=== PATIENT | male | born 1945 | race African-American/Black ===

== ENCOUNTER 2016-08-19 15:47 | Emergency (ER) | payer MEDICARE ==
--- NOTE | 2016-08-19 17:23 | ER Document Report ---
ED General - General Chief Complaint: Chest Congestion Stated Complaint: CONGESTION Mode of Arrival: Ambulatory Information source: Patient Notes: 70-year-old male presents with complaints of productive green brown sputum cough over the past 3 weeks. Patient notes initially was green, was seen by his primary care physician started on amoxicillin. Patient denies any fevers or chills nausea vomiting or diarrhea, patient notes no significant shortness of breath. Patient notes he has pneumonia a few times a year. TRAVEL OUTSIDE OF THE [place] IN LAST 30 DAYS: No - HPI Onset: Other - 3 week duration Onset/Duration: Persistent, Waxing and waning - Improve slightly with amoxicillin but then worsened Quality of pain: No pain Severity: Mild Pain Level: Denies Associated symptoms: Productive cough, Rhinnorhea Exacerbated by: Denies Relieved by: Denies Similar symptoms previously: No Recently seen / treated by doctor: No - Related Data Allergies/Adverse Reactions: No Known Allergies Allergy (Verified 08/19/16 15:59) Past Medical History - Social History Smoking Status: Never Smoker Cigarette use (# per day): No Chew tobacco use (# tins/day): No Smoking Education Provided: No Family History: Hypertension Patient has suicidal ideation: No Patient has homicidal ideation: No - Past Medical History Cardiac Medical History: Reports: Hx Hypercholesterolemia, Hx Hypertension Denies: Hx Coronary Artery Disease, Hx Heart Attack Pulmonary Medical History: Reports: Hx Asthma Denies: Hx Bronchitis, Hx COPD, Hx Pneumonia Neurological Medical History: Denies: Hx Cerebrovascular Accident, Hx Seizures Endocrine Medical History: Reports: Hx Diabetes Mellitus Type 2 Renal/ Medical History: Reports: Hx Kidney Stones. Denies: Hx Peritoneal Dialysis GI Medical History: Reports: Hx Gastroesophageal Reflux Disease, Hx Hepatitis - HEP C. Denies: Hx Cirrhosis, Hx Hiatal Hernia, Hx Ulcer Musculoskeltal Medical History: Reports Hx Arthritis Psychiatric Medical History: Denies: Hx Depression Infectious Medical History: Reports: Hx Hepatitis - HEP C Past Surgical History: Denies: Hx Abdominal Surgery, Hx Open Heart Surgery, Hx Pacemaker - Immunizations Hx Diphtheria, Pertussis, Tetanus Vaccination: Yes Hx Pneumococcal Vaccination: 04/27/00 Review of Systems - Review of Systems Notes: REVIEW OF SYSTEMS: CONSTITUTIONAL : Denies fever, chills, or sweats. Denies recent illness. EENT: Denies eye, ear, throat, or mouth pain or symptoms. Denies nasal or sinus congestion or discharge. Denies throat, tongue, or mouth swelling or difficulty swallowing. CARDIOVASCULAR: Denies chest pain. Denies palpitations or racing or irregular heart beat. Denies ankle edema. RESPIRATORY: Admits to productive cough chest congestion GASTROINTESTINAL: Denies abdominal pain or distention. Denies nausea, vomiting , or diarrhea. Denies blood in vomitus, stools, or per rectum. Denies black, tarry stools. Denies constipation. GENITOURINARY: Denies difficulty urinating, painful urination, burning, frequency, blood in urine, or discharge. MUSCULOSKELETAL: Denies back or neck pain or stiffness. Denies joint pain or swelling. SKIN: Denies rash, lesions or sores. HEMATOLOGIC : Denies easy bruising or bleeding. LYMPHATIC: Denies swollen, enlarged glands. NEUROLOGICAL: Denies confusion or altered mental status. Denies passing out or loss of consciousness. Denies dizziness or lightheadedness. Denies headache. Denies weakness or paralysis or loss of use of either side. Denies problems with gait or speech. Denies sensory loss, numbness, or tingling. Denies seizures. PSYCHIATRIC: Denies anxiety or stress. Denies depression, suicidal ideation, or homicidal ideation. ALL OTHER SYSTEMS REVIEWED AND NEGATIVE. Dictation was performed using BackTrack voice recognition software PHYSICAL EXAMINATION: GENERAL: Well-appearing, well-nourished and in no acute distress. HEAD: Atraumatic, normocephalic. EYES: Pupils equal round and reactive to light, extraocular movements intact, sclera anicteric, conjunctiva are normal. ENT: Nares patent, oropharynx clear without exudates. Moist mucous membranes. NECK: Normal range of motion, supple without lymphadenopathy LUNGS: Breath sounds clear to auscultation bilaterally and equal. No wheezes rales or rhonchi. HEART: Regular rate and rhythm without murmurs ABDOMEN: Soft, nontender, nondistended abdomen. No guarding, no rebound. No masses appreciated. Musculoskeletal: Normal range of motion, no pitting or edema. No cyanosis. NEUROLOGICAL: Cranial nerves grossly intact. Normal speech, normal gait. Normal sensory, motor exams PSYCH: Normal mood, normal affect. SKIN: Warm, Dry, normal turgor, no rashes or lesions noted. Physical Exam - Vital signs Vitals: Temp Pulse Resp BP Pulse Ox 98.5 F 89 16 160/90 H 98 08/19/16 16:02 08/19/16 16:02 08/19/16 16:02 08/19/16 16:02 08/19/16 16:02 Course - Re-evaluation Re-evalutation: 08/19/16 17:23 Lab work imaging pending patient looks extremely well for his age 0408/19/16 18:00 X-ray is consistent with a left lower lobe pneumonia, patient will be started on levofloxacin otherwise he looks extremely well, he is satting 98% on room air is afebrile is not tachycardic. After performing a Medical Screening Examination, I estimate there is LOW risk for ACUTE CORONARY SYNDROME, RESPIRATORY FAILURE, SEPSIS OR MENINGITIS, thus I consider the discharge disposition reasonable. I have reevaluated this patient multiple times and no significant life threatening changes are noted. The patient and I have discussed the diagnosis and risks, and we agree with discharging home with close follow-up. We also discussed returning to the Emergency Department immediately if new or worsening symptoms occur. We have discussed the symptoms which are most concerning (e.g., changing or worsening pain, trouble swallowing or breathing, neck stiffness, fever) that necessitate immediate return. - Vital Signs Vital signs: Temp Pulse Resp BP Pulse Ox 98.7 F 66 16 162/72 H 98 08/19/16 17:59 08/19/16 17:59 08/19/16 17:59 08/19/16 17:59 08/19/16 17:59 - Laboratory Result Diagrams: 08/19/16 17:24 08/19/16 17:24 Laboratory results interpreted by me: 08/19/16 08/19/16 17:24 17:24 RDW 14.6 H Glucose 183 H - Diagnostic Test Radiology reviewed: Image reviewed, Reports reviewed - Left lower lobe pneumonia Discharge - Discharge Clinical Impression: Body aches Left lower lobe pneumonia Qualifiers: Pneumonia type: due to unspecified organism Qualified Code(s): J18.1 - Lobar pneumonia, unspecified organism Condition: Stable Disposition: HOME, SELF-CARE Additional Instructions: Pneumonia Your examination indicates that you have pneumonia. This is an infection of the lung tissue, usually caused by bacteria or a virus. Symptoms include cough, fever, shaking chills, chest pain, shortness of breath, and coughing up bloody sputum. Treatment for bacterial pneumonia includes rest, antibiotics for 10 to 14 days, increasing your clear liquid intake, a cool mist humidifier at your bedside, and fever medication. Often, a repeat chest X-ray is performed in a few weeks--even if you feel better--to ascertain whether the infection has completely resolved and no underlying lung problem is present. You should call the physician if you develop persistent vomiting, high fever that does not respond to fever medication, increasing shortness of breath , confusion, or lethargy. Also, failure to improve within two to three days is an indication for re-examination. Follow up with your physician tomorrow for further care or return to the ED IMMEDIATELY if symptoms worsen or new concerns occur. If you cannot afford to follow up with your primary care physician a list of low cost clinics have been provided at the end of your discharge papers as well. Prescriptions: Levofloxacin [Levaquin 750 mg Tablet] 750 mg PO DAILY #5 tablet Forms: Return to Work
[2016-08-19 17:33] LABS: ABSOLUTE EOSINOPHILS # (AUTO) 0.2 10^3/uL (0.0-0.6); ABSOLUTE LYMPHOCYTES (AUTO) 1.9 10^3/uL (0.5-4.7); ABSOLUTE MONOCYTES (AUTO) 0.3 10^3/uL (0.1-1.4); ABSOLUTE NEUT (AUTO) 4.3 10^3/uL (1.7-8.2); BASOPHILS % (AUTO) 0.7 % (0-2); EOSINOPHILS % (AUTO) 2.3 % (0-6); HEMATOCRIT 41.4 % (37.9-51.0); HEMOGLOBIN 14.3 g/dL (13.5-17.0); HGB HCT DIFFERENCE 1.5; LYMPHOCYTES % (AUTO) 28.5 % (13-45); MEAN CORPUSCULAR HEMOGLOBIN 31.5 pg (27.0-33.4); MEAN CORPUSCULAR HGB CONC 34.6 g/dL (32.0-36.0); MEAN CORPUSCULAR VOLUME 91 fl (80-97); RED BLOOD COUNT 4.55 10^6/uL (4.35-5.55); RED CELL DISTRIBUTION WIDTH 14.6 % (11.5-14.0); SEGMENTED NEUTROPHILS % (AUTO) 63.5 % (42-78); WHITE BLOOD COUNT 6.8 10^3/uL (4.0-10.5)
[2016-08-19 17:58] LABS: ALANINE AMINOTRANSFERASE 24 U/L (21-72); ALBUMIN 3.9 g/dL (3.5-5.0); ALKALINE PHOSPHATASE 89 U/L (38-126); ANION GAP 12 (5-19); ASPARTATE AMINO TRANSFERASE 22 U/L (17-59); BILIRUBIN,DIRECT 0.1 mg/dL (0.0-0.4); BILIRUBIN,TOTAL 0.3 mg/dL (0.2-1.3); BLOOD UREA NITROGEN 12 mg/dL (7-20); CALCIUM 9.5 mg/dL (8.4-10.2); CARBON DIOXIDE 28 mmol/L (22-30); CHLORIDE 104 mmol/L (98-107); CREATININE RESULT 1.01 mg/dL (0.52-1.25); GLUCOSE 183 mg/dL (75-110); SODIUM 143.5 mmol/L (137-145); TOTAL PROTEIN 7.7 g/dL (6.3-8.2)
[2016-08-19 18:00] VITALS: BP 162/72
== END 2016-08-19 18:00 | disposition home or self-care (01) ==
LOC: ER 15:47
DX: J18.1 Lobar pneumonia, unspecified organism (principal); R05 Cough; J34.89 Other specified disorders of nose and nasal sinuses; R52 Pain, unspecified; I10 Essential (primary) hypertension; E11.9 Type 2 diabetes mellitus without complications; J45.909 Unspecified asthma, uncomplicated
CPT/HCPCS: 36415; 71020; 80053; 85025; 99283

== ENCOUNTER 2016-08-25 00:07 | Emergency (ER) | payer MEDICARE ==
--- NOTE | 2016-08-25 06:30 | ER Document Report ---
ED General - General Mode of Arrival: Ambulatory Information source: Patient TRAVEL OUTSIDE OF THE [place] IN LAST 30 DAYS: No - HPI Patient complains to provider of: Productive Cough Onset: Other - > 3 weeks ago Onset/Duration: Gradual, Persistent Associated symptoms: Productive cough - Brown sputum, Shortness of breath Recently seen / treated by doctor: Yes - 08/19/2016 [facility] <CARMEL KNAPP - Last Filed: 08/25/16 06:40> <THIERRY IBARRA - Last Filed: 08/25/16 08:21> - General Chief Complaint: Productive Cough Stated Complaint: POSSIBLE PNEUMONIA RECHECK Notes: Patient is a 70-year-old male, with history including asthma, COPD, hypertension , and diabetes, presenting to the emergency department after productive cough over 3 weeks. Patient was first put on a round of amoxicillin, and on 2016 he came into the emergency department and was prescribed 5 day course of Levaquin for likely pneumonia based on lingular infiltrate in his left lower lobe. Patient states he still has not improved, and his sputum has turned from green to brown. Patient denies fever. (CARMEL KNAPP) - Related Data Allergies/Adverse Reactions: No Known Allergies Allergy (Verified 08/25/16 00:48) Past Medical History - General Information source: Patient - Social History Smoking Status: Unknown if Ever Smoked Family History: Reviewed & Not Pertinent, Hypertension - Past Medical History Cardiac Medical History: Reports: Hx Hypercholesterolemia, Hx Hypertension Pulmonary Medical History: Reports: Hx Asthma, Hx COPD Endocrine Medical History: Reports: Hx Diabetes Mellitus Type 2 Renal/ Medical History: Reports: Hx Kidney Stones GI Medical History: Reports: Hx Gastroesophageal Reflux Disease, Hx Hepatitis - HEP C Musculoskeltal Medical History: Reports Hx Arthritis Infectious Medical History: Reports: Hx Hepatitis - HEP C - Immunizations Hx Diphtheria, Pertussis, Tetanus Vaccination: Yes Hx Pneumococcal Vaccination: 04/27/00 <CARMEL KNAPP - Last Filed: 08/25/16 06:40> Review of Systems - Review of Systems Constitutional: No symptoms reported. denies: Fever EENT: No symptoms reported Cardiovascular: No symptoms reported Respiratory: See HPI, Cough, Short of breath, Sputum - Brown, Other - Chest Congestion Gastrointestinal: No symptoms reported Genitourinary: No symptoms reported Male Genitourinary: No symptoms reported Musculoskeletal: No symptoms reported Skin: No symptoms reported Hematologic/Lymphatic: No symptoms reported Neurological/Psychological: No symptoms reported -: Yes All other systems reviewed and negative <ARIAALEXEICARMEL - Last Filed: 08/25/16 06:40> Physical Exam - General General appearance: Alert - HEENT Head: Normocephalic, Atraumatic Eyes: Normal Pupils: PERRL - Respiratory Respiratory status: No respiratory distress Chest status: Nontender Breath sounds: Rhonchi, Wheezing - Higher pitch in the left lower lung over area of lingular infiltrate - Cardiovascular Rhythm: Regular Heart sounds: Normal auscultation Murmur: No - Abdominal Inspection: Normal Distension: No distension Bowel sounds: Normal Tenderness: Nontender - Back Back: Normal, Nontender - Extremities General upper extremity: Normal inspection, Nontender General lower extremity: Normal inspection, Nontender - Neurological Neuro grossly intact: Yes Cognition: Normal Orientation: AAOx4 Candido Coma Scale Eye Opening: Spontaneous [place] Coma Scale Verbal: Oriented Candido Coma Scale Motor: Obeys Commands Candido Coma Scale Total: 15 Speech: Normal - Psychological Associated symptoms: Normal affect, Normal mood - Skin Skin Temperature: Warm Skin Moisture: Dry Skin Color: Normal <CARMEL KNAPP - Last Filed: 08/25/16 06:40> Course <CARMEL KNAPP - Last Filed: 08/25/16 06:40> - Laboratory Result Diagrams: 08/25/16 07:05 <THIERRY IBARRA - Last Filed: 08/25/16 08:21> - Re-evaluation Re-evalutation: 08/25/16 08:21 After the DuoNeb treatment, the lungs have cleared quite a lot. And there is now mostly a focal wheeze and rhonchi heard in the left posterior lower lung consistent with the lingular infiltrate on x-ray. (THIERRY IBARRA) - Vital Signs Vital signs: Temp Pulse Resp BP Pulse Ox 97.8 F 63 18 130/70 H 94 08/25/16 07:42 08/25/16 07:42 08/25/16 07:42 08/25/16 07:42 08/25/16 07:42 - Laboratory Laboratory results interpreted by me: 08/25/16 07:05 RDW 14.6 H Discharge <CARMEL KNAPP - Last Filed: 08/25/16 06:40> <THIERRY IBARRA - Last Filed: 08/25/16 08:21> - Discharge Clinical Impression: COPD exacerbation Pneumonia Qualifiers: Pneumonia type: due to unspecified organism Laterality: left Lung location: unspecified part of lung Qualified Code(s): J18.9 - Pneumonia, unspecified organism Condition: Stable Disposition: HOME, SELF-CARE Additional Instructions: Take the antibiotics as prescribed. Try Robitussin-DM to help control cough and to loosen mucus. Drink plenty of fluids. Use your albuterol inhaler every 4 hours for wheezing as needed. Get as much rest as possible. Follow-up with your primary care provider this week for recheck, and to check on the sputum cultures. Follow-up with your pulmonary medicine doctor as scheduled. RETURN TO THE EMERGENCY ROOM IF ANY NEW OR WORSENING SYMPTOMS. Prescriptions: Doxycycline Hyclate 100 mg PO BID #20 tablet Referrals: TR ESCOBAR MD [Primary Care Provider] - Follow up in 3-5 days Scribe Attestation: 08/25/16 08:20 I personally performed the services described in the documentation, reviewed and edited the documentation which was dictated to the scribe in my presence, and it accurately records my words and actions. (THIERRY IBARRA) Scribe Documentation - Scribe Written by Catherine:: Carmel Knapp 08/25/2016 0630 acting as scribe for :: Ji <CARMEL KNAPP - Last Filed: 08/25/16 06:40>
[2016-08-25] MEDS ORDERED: IPRATROPIUM/ALBUTEROL 0.5-2.5 MG/3 ML AMPUL NEB ONE (06:40)
[2016-08-25 07:34] LABS: ABSOLUTE BASOPHILS # (AUTO) 0.1 10^3/uL (0.0-0.2); ABSOLUTE EOSINOPHILS # (AUTO) 0.2 10^3/uL (0.0-0.6); ABSOLUTE LYMPHOCYTES (AUTO) 2.6 10^3/uL (0.5-4.7); ABSOLUTE MONOCYTES (AUTO) 0.4 10^3/uL (0.1-1.4); ABSOLUTE NEUT (AUTO) 3.1 10^3/uL (1.7-8.2); BASOPHILS % (AUTO) 1.2 % (0-2); EOSINOPHILS % (AUTO) 2.7 % (0-6); HEMATOCRIT 43.9 % (37.9-51.0); HEMOGLOBIN 14.9 g/dL (13.5-17.0); HGB HCT DIFFERENCE 0.8; MEAN CORPUSCULAR HEMOGLOBIN 30.7 pg (27.0-33.4); MEAN CORPUSCULAR HGB CONC 33.8 g/dL (32.0-36.0); MEAN CORPUSCULAR VOLUME 91 fl (80-97); RED BLOOD COUNT 4.84 10^6/uL (4.35-5.55); RED CELL DISTRIBUTION WIDTH 14.6 % (11.5-14.0); SEGMENTED NEUTROPHILS % (AUTO) 48.1 % (42-78); WHITE BLOOD COUNT 6.4 10^3/uL (4.0-10.5)
[2016-08-25 08:50] VITALS: BP 131/77
== END 2016-08-25 08:50 | disposition home or self-care (01) ==
LOC: ER 00:07
DX: J44.0 Chronic obstructive pulmonary disease with (acute) lower respiratory infection (principal); J18.9 Pneumonia, unspecified organism; J44.1 Chronic obstructive pulmonary disease with (acute) exacerbation; I10 Essential (primary) hypertension; E11.9 Type 2 diabetes mellitus without complications; R05 Cough; R06.02 Shortness of breath
CPT/HCPCS: 94640; 99283; 36415; 87070; 87205; 85025; 71020; A9270; J7620

== ENCOUNTER 2016-09-06 01:58 | Emergency (ER) | payer MEDICARE ==
[2016-09-06 02:13] VITALS: BP 148/76
--- NOTE | 2016-09-06 02:49 | ER Document Report ---
ED Respiratory Problem - General Chief Complaint: Congestion Stated Complaint: BODY ACHES,CONGESTION Time Seen by Provider: 09/06/16 02:25 Notes: Patient is a 70-year-old male comes emergency department for chief complaint of chest congestion, cough, and feeling run down. He denies chest pain, dizziness. He states he is coughing up brown and greenish sputum. He was diagnosed with pneumonia originally almost a month ago, states he took Levaquin , states he was seen again and placed on doxycycline, he states he has completed both courses but feels about the same. Past medical history of COPD, asthma, DMII. Former smoker. TRAVEL OUTSIDE OF THE [place] IN LAST 30 DAYS: No - Related Data Allergies/Adverse Reactions: No Known Allergies Allergy (Verified 08/25/16 00:48) Past Medical History - General Information source: Patient - Social History Smoking Status: Former Smoker Frequency of alcohol use: None Drug Abuse: None Lives with: Alone Family History: Reviewed & Not Pertinent, Hypertension Patient has suicidal ideation: No Patient has homicidal ideation: No - Past Medical History Cardiac Medical History: Reports: Hx Hypercholesterolemia, Hx Hypertension Denies: Hx Coronary Artery Disease, Hx Heart Attack Pulmonary Medical History: Reports: Hx Asthma, Hx COPD Denies: Hx Bronchitis, Hx Pneumonia Neurological Medical History: Denies: Hx Cerebrovascular Accident, Hx Seizures Endocrine Medical History: Reports: Hx Diabetes Mellitus Type 2 Renal/ Medical History: Reports: Hx Kidney Stones. Denies: Hx Peritoneal Dialysis GI Medical History: Reports: Hx Gastroesophageal Reflux Disease, Hx Hepatitis - HEP C. Denies: Hx Cirrhosis, Hx Hiatal Hernia, Hx Ulcer Musculoskeltal Medical History: Reports Hx Arthritis Psychiatric Medical History: Denies: Hx Depression Infectious Medical History: Reports: Hx Hepatitis - HEP C Past Surgical History: Denies: Hx Abdominal Surgery, Hx Open Heart Surgery, Hx Pacemaker - Immunizations Hx Diphtheria, Pertussis, Tetanus Vaccination: Yes Hx Pneumococcal Vaccination: 04/27/00 Review of Systems - Review of Systems Constitutional: See HPI EENT: No symptoms reported Cardiovascular: No symptoms reported Respiratory: See HPI Gastrointestinal: No symptoms reported Genitourinary: No symptoms reported Male Genitourinary: No symptoms reported Musculoskeletal: No symptoms reported Skin: No symptoms reported Hematologic/Lymphatic: No symptoms reported Neurological/Psychological: No symptoms reported Physical Exam - Vital signs Vitals: Temp Pulse Resp BP Pulse Ox 98.2 F 69 16 148/76 H 98 09/06/16 02:03 09/06/16 02:03 09/06/16 02:03 09/06/16 02:03 09/06/16 02:03 Interpretation: Normal - General General appearance: Appears well, Alert In distress: None - Patient alert, well-appearing, calm - HEENT Head: Normocephalic, Atraumatic Eyes: Normal Conjunctiva: Normal Extraocular movements intact: Yes Eyelashes: Normal Pupils: PERRL Nasal: Normal Mouth/Lips: Normal Mucous membranes: Normal Pharynx: Normal Neck: Normal - Respiratory Respiratory status: No respiratory distress. No: Labored, Tachypnea Chest status: Nontender Breath sounds: Normal. No: Decreased air movement, Nonproductive cough, Wheezing Chest palpation: Normal - Cardiovascular Rhythm: Regular. No: Tachycardia Heart sounds: Normal auscultation, S1 appreciated, S2 appreciated Murmur: No - Abdominal Inspection: Normal Distension: No distension Bowel sounds: Normal Tenderness: Nontender. No: Tender Organomegaly: No organomegaly - Back Back: Normal, Nontender - Extremities General upper extremity: Normal inspection, Nontender, Normal color, Normal ROM , Normal temperature General lower extremity: Normal inspection, Nontender, Normal color, Normal ROM , Normal temperature, Normal weight bearing. No: Lois's sign - Neurological Neuro grossly intact: Yes Cognition: Normal Orientation: AAOx4 Candido Coma Scale Eye Opening: Spontaneous [place] Coma Scale Verbal: Oriented [place] Coma Scale Motor: Obeys Commands Candido Coma Scale Total: 15 Speech: Normal Motor strength normal: LUE, RUE, LLE, RLE Sensory: Normal - Psychological Associated symptoms: Normal affect, Normal mood - Skin Skin Temperature: Warm Skin Moisture: Dry Skin Color: Normal Course - Re-evaluation Re-evalutation: Patient with clear lung sounds, nonlabored breathing, no hypoxia, he gets up and ambulates without any difficulty or tachypnea, is actually quite well- appearing. Vital signs unremarkable. CBC unremarkable, chemistry hemolyzed, EKG with no changes compared to prior. Chest x-ray shows resolution of previous pneumonia. No acute abnormalities noted. Discussed this with patient, patient expresses satisfaction resolution, he expresses frustration that he gets about 5 or so upper respiratory infections a year, he was formerly a chronic smoker for about 50 years, he states he does have a follow-up appointment with pulmonology. After discussion patient states he is happy with the results, ready to leave, requests for pain for lower back strain. Patient states he does not want to stay for blood redraw. Clinical picture not consistent with ACS. Unremarkable back and neurological exam. Provided with a Dosepak for this. - Vital Signs Vital signs: Temp Pulse Resp BP Pulse Ox 98.2 F 69 19 148/76 H 99 09/06/16 03:42 09/06/16 03:42 09/06/16 04:50 09/06/16 03:42 09/06/16 04:50 - Laboratory Result Diagrams: 09/06/16 04:01 09/06/16 04:01 Laboratory results interpreted by me: 09/06/16 04:01 RDW 15.1 H Plt Count 143 L Discharge - Discharge Clinical Impression: Chest congestion, Cough Condition: Stable Disposition: HOME, SELF-CARE Additional Instructions: The chest x-ray shows that the pneumonia has cleared. Blood work does not show any antibiotics. Continue Mucinex, drink plenty of fluids, rest. Follow-up with pulmonology referral for additional management of COPD. Return to emergency department for any concerning or worsening symptoms including difficulty breathing. Referrals: TR ESCOBAR MD [Primary Care Provider] - Follow up as needed
[2016-09-06 04:11] LABS: ABSOLUTE EOSINOPHILS # (AUTO) 0.2 10^3/uL (0.0-0.6); ABSOLUTE LYMPHOCYTES (AUTO) 1.9 10^3/uL (0.5-4.7); ABSOLUTE MONOCYTES (AUTO) 0.5 10^3/uL (0.1-1.4); ABSOLUTE NEUT (AUTO) 2.3 10^3/uL (1.7-8.2); BASOPHILS % (AUTO) 0.7 % (0-2); EOSINOPHILS % (AUTO) 3.9 % (0-6); HEMATOCRIT 41.3 % (37.9-51.0); HGB HCT DIFFERENCE 0.7; LYMPHOCYTES % (AUTO) 38.6 % (13-45); MEAN CORPUSCULAR HEMOGLOBIN 30.8 pg (27.0-33.4); MEAN CORPUSCULAR VOLUME 91 fl (80-97); MONOCYTES % (AUTO) 10.1 % (3-13); RED BLOOD COUNT 4.56 10^6/uL (4.35-5.55); RED CELL DISTRIBUTION WIDTH 15.1 % (11.5-14.0); SEGMENTED NEUTROPHILS % (AUTO) 46.7 % (42-78)
[2016-09-06] MEDS ORDERED: HYDROCODONE/ACETAMINOPHEN 5-325 MG 6 TAB/DSPK PO PRN (04:37)
[2016-09-06] MEDS ORDERED: HYDROCODONE/ACETAMINOPHEN 5-325 MG 6 TAB/DSPK ONE (05:03)
--- NOTE | 2016-09-06 12:57 | EKG REPORT ---
SEVERITY:- ABNORMAL ECG - SINUS ARRHYTHMIA, RATE 52-73 LEFT VENTRICULAR HYPERTROPHY : Confirmed by: Nader Wheat 06-Sep-2016 12:56:23
--- NOTE | 2016-09-08 09:31 | EKG REPORT ---
SEVERITY:- ABNORMAL ECG - SINUS RHYTHM LEFT VENTRICULAR HYPERTROPHY : Confirmed on behalf of: Nader Wheat 08-Sep-2016 09:30:10
== END 2016-09-06 04:51 | disposition home or self-care (01) ==
LOC: ER 01:58
DX: J44.9 Chronic obstructive pulmonary disease, unspecified (principal); S39.012A Strain of muscle, fascia and tendon of lower back, initial encounter; X58.XXXA Exposure to other specified factors, initial encounter; R05 Cough; R09.89 Other specified symptoms and signs involving the circulatory and respiratory systems; E11.9 Type 2 diabetes mellitus without complications; Z87.891 Personal history of nicotine dependence; Z87.01 Personal history of pneumonia (recurrent); I10 Essential (primary) hypertension
CPT/HCPCS: 36415; 71020; 85025; 93005; 93010; 99284

== ENCOUNTER 2016-09-15 01:49 | Emergency (ER) | payer MEDICARE ==
[2016-09-15] MEDS ORDERED: MINERAL OIL 30 ML UDCUP PR ONE ×2 (04:50→06:37)
--- NOTE | 2016-09-15 05:14 | ER Document Report ---
ED General - General Chief Complaint: Abdominal Pain Stated Complaint: POSSIBLE CONSTIPATION Time Seen by Provider: 09/15/16 04:49 Notes: Patient is a 71-year-old male who presents with complaint of not having a bowel movement for over 9 days. He has had some vomiting. He says the only bowel movement he has had is more liquid stool that he feels as, being pushed around something. He feels some pain in his lower back and his lower abdomen and feels as if there is a stool mass that is not allowing things to pass. He has had issues with constipation in the past. He denies any fevers. No infections. No abdominal surgeries. No other complaints at this time. TRAVEL OUTSIDE OF THE [place] IN LAST 30 DAYS: No - Related Data Allergies/Adverse Reactions: No Known Allergies Allergy (Verified 09/15/16 02:14) Past Medical History - Social History Smoking Status: Unknown if Ever Smoked Frequency of alcohol use: None Drug Abuse: None Family History: Reviewed & Not Pertinent, Hypertension Patient has suicidal ideation: No Patient has homicidal ideation: No - Past Medical History Cardiac Medical History: Reports: Hx Hypercholesterolemia, Hx Hypertension Denies: Hx Coronary Artery Disease, Hx Heart Attack Pulmonary Medical History: Reports: Hx Asthma, Hx COPD Denies: Hx Bronchitis, Hx Pneumonia Neurological Medical History: Denies: Hx Cerebrovascular Accident, Hx Seizures Endocrine Medical History: Reports: Hx Diabetes Mellitus Type 2 Renal/ Medical History: Reports: Hx Kidney Stones. Denies: Hx Peritoneal Dialysis GI Medical History: Reports: Hx Gastroesophageal Reflux Disease, Hx Hepatitis - HEP C. Denies: Hx Cirrhosis, Hx Hiatal Hernia, Hx Ulcer Musculoskeltal Medical History: Reports Hx Arthritis Psychiatric Medical History: Denies: Hx Depression Infectious Medical History: Reports: Hx Hepatitis - HEP C Past Surgical History: Denies: Hx Abdominal Surgery, Hx Open Heart Surgery, Hx Pacemaker - Immunizations Hx Diphtheria, Pertussis, Tetanus Vaccination: Yes Hx Pneumococcal Vaccination: 04/27/00 Review of Systems - Review of Systems Notes: My Normal Review Basic REVIEW OF SYSTEMS: CONSTITUTIONAL : Denies fever, chills, or sweats. Denies recent illness. CARDIOVASCULAR: Denies chest pain. RESPIRATORY: Denies cough, cold, or chest congestion. Denies shortness of breath, difficulty breathing, or wheezing. GASTROINTESTINAL: Lower abdominal pain. Few episodes of vomiting. Complaints of constipation. GENITOURINARY: Denies difficulty urinating, painful urination, burning, frequency, or blood in urine. MUSCULOSKELETAL: Denies neck or back pain or joint pain or swelling. SKIN: Denies rash or skin lesions. NEUROLOGICAL: Denies altered mental status or loss of consciousness. Denies headache. Denies weakness or paralysis or loss of use of either side. Denies problems with gait or speech. Denies sensory or motor loss. ALL OTHER SYSTEMS REVIEWED AND NEGATIVE. Physical Exam - Vital signs Vitals: Temp Pulse Resp BP Pulse Ox 97.8 F 73 16 119/67 98 09/15/16 02:12 09/15/16 02:12 09/15/16 02:12 09/15/16 02:12 09/15/16 02:12 - Notes Notes: General Appearance: Well nourished, alert, cooperative, no acute distress, mild obvious discomfort. Well appearing. Vitals: reviewed, See vital signs table. Eyes: PERRL, EOMI, Conjuctiva clear Mouth: No decreasd moisture Lungs: No wheezing, No rales, No rhonci, No accessory muscle use, good air exchange bilaterally. Heart: Normal rate, Regular rythm, No murmur, no rub Abdomen: Normal BS, soft, No rigidity, no abdominal distention, mild lower abdominal tenderness to palpation, No guarding, no rebound, no abdominal masses , no organomegaly Rectal Exam: No stool in rectal vault. Extremities: strength 5/5 in all extremities, good pulses in all extremities, no swelling or tenderness in the extremities, no edema. Skin: warm, dry, appropriate color, no rash Neuro: speech clear, oriented x 3, normal affect, responds appropriately to questions. Course - Vital Signs Vital signs: Temp Pulse Resp BP Pulse Ox 97.8 F 73 16 119/67 98 09/15/16 02:12 09/15/16 02:12 09/15/16 02:12 09/15/16 02:12 09/15/16 02:12 - Transfer of Care Notes: 09/15/16 06:52 on x-ray patient does have moderate amount of stool in the proximal rectal vault. I cannot reach it on digital rectal exam. He has had no passing of blood. He is on chronic opiate medications which is probably leading to his constipation is probably the reason why he has not had a bowel movement in over a week. I gave him an enema which had little relief. I will give him a second enema. After that we will discharge him home on I informed him if he still not had a bowel movement after 24 hours he should return to ER so we can reevaluate him. I encouraged him return to ER immediately if he has worsening pain, fevers , or recurrent vomiting. Magnesium citrate. Patient agrees with plan and will be discharged home. Patient's abdominal exam is very benign. His abdomen is soft and nondistended. He does not clinically represent an obstruction in his abdominal x-ray does not correlate with obstruction either. Dictation of this chart was performed using voice recognition software; therefore, there may be some unintended grammatical errors. Discharge - Discharge Clinical Impression: Narcotic bowel syndrome Abdominal pain Qualifiers: Abdominal location: lower abdomen, unspecified Qualified Code(s): R10.30 - Lower abdominal pain, unspecified Condition: Good Disposition: HOME, SELF-CARE Additional Instructions: After you get home please start using the magnesium citrate. You should start having bowel movements within the next 12-24 hours. Please return to the ER iff after 24 hours you are still not having bowel movements or feel unwell. Return to the ER immediately if you have recurrent vomiting, fevers, or worsening abdominal pain. You can stop taking the magnesium citrate after you have passed a moderate amount of formed stool. Prescriptions: Magnesium Citrate [Citrate of Magnesia 296 ml Bottle] 50 ml PO BID #1 bottle Referrals: TR ESCOBAR MD [Primary Care Provider] - 09/17/16
[2016-09-15 07:51] VITALS: BP 130/69
== END 2016-09-15 07:51 | disposition home or self-care (01) ==
LOC: ER 01:49
DX: K63.89 Other specified diseases of intestine (principal); T40.2X5A Adverse effect of other opioids, initial encounter; Z79.891 Long term (current) use of opiate analgesic; K59.00 Constipation, unspecified; R11.10 Vomiting, unspecified; R10.30 Lower abdominal pain, unspecified; M54.5 Low back pain; I10 Essential (primary) hypertension; J44.9 Chronic obstructive pulmonary disease, unspecified; E11.9 Type 2 diabetes mellitus without complications
CPT/HCPCS: 99283; 74022; J3490

== ENCOUNTER → 2016-09-25 | Outpatient (CLI) | payer MEDICAID, MEDICARE ==
--- NOTE | 2016-09-25 15:45 | RADIOLOGY REPORT (SQ) ---
EXAM DESCRIPTION: CT CHEST WITHOUT COMPLETED DATE/TIME: 09/25/2016 1:50 pm REASON FOR STUDY: PULMONARY INFILTRATE R91.8 OTHER NONSPECIFIC ABNORMAL FINDING OF LUNG FIELD COMPARISON: CT angio chest 08/02/2015 CT chest 06/07/2015 TECHNIQUE: CT scan performed of the chest without intravenous contrast. Images reviewed with lung, soft tissue and bone windows. Reconstructed coronal and sagittal MPR images reviewed. All images st ored on PACS. All CT scanners at this facility use dose modulation, iterative reconstruction, and/or weight based d osing when appropriate to reduce radiation dose to as low as reasonably achievable (ALARA). [facility]: Dose Right [facility]: CareDose [facility]: Dose Right [facility]: Teradose 4D [facility]: [employer] RADIATION DOSE: 6.80 mGy. LIMITATIONS: No technical limitations. FINDINGS: LUNGS AND PLEURA: There is peripheral bulla or bleb formation around the right and left sabrina ng apices. This is similar compared to both prior CT exams. On axial image 33, an 8 mm subpleural round density is present in the right upper lobe. This could be a small pulmonary nodules or airspace filled with fluid. No pleural effusions. No pneumothorax. Airways are patent. HILAR AND MEDIASTINAL STRUCTURES: Esophagus is thick walled with an air-fluid level along its distal 3rd. There is gastroesophageal reflux. Nonspecific enlarged precarinal lymph node 1.6 x 1.2 cm in size, similar compared to both prior studi es. HEART AND VASCULAR STRUCTURES: No aneurysm. No pericardial effusion. Moderate coronary artery calci fication UPPER ABDOMEN: No significant findings. Limited exam. THYROID AND OTHER SOFT TISSUES: No masses. No adenopathy. BONES: Focal fat in the T8 vertebral body sagittal image 33 unchanged from prior studies HARDWARE: None in the chest. OTHER: No other significant findings. IMPRESSION: 8 mm subpleural nodule right lung apex new compared to the previous exams COMMENT: FLEISCHNER CRITERIA FOR FOLLOW-UP OF PULMONARY NODULES Incidentally detected new nodules in persons 35 or older. HIGH RISK: History of smoking or other known risk factors. 6-8mm single solid nodule: LOW RISK: CT 6-12 mo; then consider CT 18-24 mo. HIGH RISK: CT 6-12 mo; th en CT 18-24 mo. TECHNICAL DOCUMENTATION: JOB ID: [id number] Quality ID # [id number]: Final reports with documentation of one or more dose reduction techniques (e.g., Au tomated exposure control, adjustment of the mA and/or kV according to patient size, use of iterative reconstruction technique) 2010 [employer]- All Rights Reserved
== END ==
LOC: RAD 13:22
PROVIDERS: ATTEND Internal Medicine Critical Care Medicine
DX: R91.8 Other nonspecific abnormal finding of lung field (principal)
CPT/HCPCS: 71250

== ENCOUNTER 2016-11-18 12:41 | Emergency (ER) | payer MEDICARE ==
--- NOTE | 2016-11-18 13:08 | ER Document Report ---
ED Blood Pressure Problem - General Chief Complaint: High Blood Pressure Stated Complaint: BLOOD PRESSURE PROBLEMS Time Seen by Provider: 11/18/16 13:05 Information source: Patient Notes: Patient was sent from his primary care physician's office due to an elevated blood pressure. Patient states he did take his blood pressure medications this morning but previously he had missed several days and had not taken them. He states he has no symptoms and feels "fine". He denies any chest pain or shortness of breath. He denies any numbness tingling or dizziness. Patient's symptoms are none at this time. There is no known radiation of the symptoms. Nothing appears to make symptoms better or worse. TRAVEL OUTSIDE OF THE [place] IN LAST 30 DAYS: No - HPI Patient complains to provider of: High blood pressure Onset: Just prior to arrival Onset/Duration: Gradual Quality of pain: No pain Severity: None Pain Level: Denies Problem is: Chronic problem Pt currently taking medication for problem: Yes Associated symptoms: None - Related Data Allergies/Adverse Reactions: No Known Allergies Allergy (Verified 11/18/16 12:52) Past Medical History - General Information source: Patient - Social History Smoking Status: Former Smoker Drug Abuse: None Family History: Reviewed & Not Pertinent, Hypertension Patient has suicidal ideation: No Patient has homicidal ideation: No - Past Medical History Cardiac Medical History: Reports: Hx Hypercholesterolemia, Hx Hypertension Denies: Hx Coronary Artery Disease, Hx Heart Attack Pulmonary Medical History: Reports: Hx Asthma, Hx COPD Denies: Hx Bronchitis, Hx Pneumonia Neurological Medical History: Denies: Hx Cerebrovascular Accident, Hx Seizures Endocrine Medical History: Reports: Hx Diabetes Mellitus Type 2 Renal/ Medical History: Reports: Hx Kidney Stones. Denies: Hx Peritoneal Dialysis GI Medical History: Reports: Hx Gastroesophageal Reflux Disease, Hx Hepatitis - HEP C. Denies: Hx Cirrhosis, Hx Hiatal Hernia, Hx Ulcer Musculoskeltal Medical History: Reports Hx Arthritis Psychiatric Medical History: Denies: Hx Depression Infectious Medical History: Reports: Hx Hepatitis - HEP C Past Surgical History: Denies: Hx Abdominal Surgery, Hx Open Heart Surgery, Hx Pacemaker - Immunizations Hx Diphtheria, Pertussis, Tetanus Vaccination: Yes Hx Pneumococcal Vaccination: 04/27/00 Review of Systems - Review of Systems Cardiovascular: denies: Chest pain, Palpitations Respiratory: denies: Cough, Short of breath Gastrointestinal: denies: Abdominal pain, Vomiting Physical Exam - Vital signs Vitals: Temp Pulse Resp BP Pulse Ox 98.5 F 53 L 18 211/87 H 100 11/18/16 12:52 11/18/16 12:52 11/18/16 12:52 11/18/16 12:52 11/18/16 12:52 - General General appearance: Appears well, Alert - Respiratory Respiratory status: No respiratory distress Chest status: Nontender Breath sounds: Normal Chest palpation: Normal - Cardiovascular Rhythm: Regular Heart sounds: Normal auscultation Murmur: No - Neurological Neuro grossly intact: Yes Cognition: Normal Orientation: AAOx4 Elmer Coma Scale Eye Opening: Spontaneous Candido Coma Scale Verbal: Oriented Elmer Coma Scale Motor: Obeys Commands Elmer Coma Scale Total: 15 Speech: Normal Motor strength normal: LUE, RUE, LLE, RLE Sensory: Normal - Psychological Associated symptoms: Normal affect, Normal mood - Skin Skin Temperature: Warm Skin Moisture: Dry Skin Color: Normal Course - Re-evaluation Re-evalutation: 11/18/16 14:12 pt denies complaints at 210pm. His bp is now 160/72 - Vital Signs Vital signs: Temp Pulse Resp BP Pulse Ox 98.5 F 53 L 18 211/87 H 100 11/18/16 12:52 11/18/16 12:52 11/18/16 12:52 11/18/16 12:52 11/18/16 12:52 Discharge - Discharge Clinical Impression: Uncontrolled hypertension Condition: Stable Disposition: HOME, SELF-CARE Instructions: Angiotensin Converting Enzyme Inhibitor Medication ([facility]), Beta Blockers ([facility]), High Blood Pressure ([facility]), Hydrochlorothiazide ([facility]) Additional Instructions: follow up with your primary doctor as instructed
[2016-11-18 14:22] VITALS: BP 160/72
== END 2016-11-18 14:16 | disposition home or self-care (01) ==
LOC: ER 12:41
DX: I10 Essential (primary) hypertension (principal); Z87.891 Personal history of nicotine dependence
CPT/HCPCS: 99283

== ENCOUNTER → 2016-11-20 | Outpatient (CLI) | payer MEDICARE ==
--- NOTE | 2016-11-20 15:26 | RADIOLOGY REPORT (SQ) ---
EXAM DESCRIPTION: KNEE LEFT 4 VIEWS COMPLETED DATE/TIME: 11/20/2016 2:59 pm REASON FOR STUDY: PAIN IN LEFT KNEE M25.562 PAIN IN LEFT KNEE COMPARISON: None. NUMBER OF VIEWS: Four views. TECHNIQUE: AP, lateral, and both oblique radiographic images acquired of the left knee. LIMITATIONS: None. FINDINGS: MINERALIZATION: Normal. BONES: No acute fracture or dislocation. No worrisome bone lesions. JOINT: Small effusion. SOFT TISSUES: Vascular calcifications. OTHER: No other significant finding. IMPRESSION: Small joint effusion. TECHNICAL DOCUMENTATION: JOB ID: [id number] [employer]- All Rights Reserved
== END ==
LOC: OD 14:45
PROVIDERS: ATTEND Internal Medicine
DX: M25.562 Pain in left knee (principal)

== ENCOUNTER 2017-07-04 13:20 | Emergency (ER) | payer MEDICARE ==
[2017-07-04 13:43] VITALS: BP 166/90
[2017-07-04] MEDS ORDERED: IBUPROFEN 800 MG TABLET PO ONE (14:13)
--- NOTE | 2017-07-04 14:18 | ER Document Report ---
ED Medical Screen (RME) - General Chief Complaint: Pain All Over Stated Complaint: DIZZY, BODY PAIN Time Seen by Provider: 07/04/17 14:13 Mode of Arrival: Ambulatory Information source: Patient TRAVEL OUTSIDE OF THE [place] IN LAST 30 DAYS: No - HPI Patient complains to provider of: dizziness, pain all over Onset: This morning - pt. with c/o dizziness this am and has been having pain all over for the past several days. - Related Data Allergies/Adverse Reactions: No Known Allergies Allergy (Verified 07/04/17 14:13) Past Medical History - Social History Chew tobacco use (# tins/day): No Frequency of alcohol use: None Drug Abuse: None - Past Medical History Cardiac Medical History: Reports: Hx Hypercholesterolemia, Hx Hypertension Denies: Hx Coronary Artery Disease, Hx Heart Attack Pulmonary Medical History: Reports: Hx Asthma, Hx COPD Denies: Hx Bronchitis, Hx Pneumonia Neurological Medical History: Denies: Hx Cerebrovascular Accident, Hx Seizures Endocrine Medical History: Reports: Hx Diabetes Mellitus Type 2 Renal/ Medical History: Reports: Hx Kidney Stones. Denies: Hx Peritoneal Dialysis GI Medical History: Reports: Hx Gastroesophageal Reflux Disease, Hx Hepatitis - HEP C. Denies: Hx Cirrhosis, Hx Hiatal Hernia, Hx Ulcer Musculoskeltal Medical History: Reports Hx Arthritis Psychiatric Medical History: Denies: Hx Depression Infectious Medical History: Reports: Hx Hepatitis - HEP C Past Surgical History: Denies: Hx Abdominal Surgery, Hx Open Heart Surgery, Hx Pacemaker - Immunizations Hx Diphtheria, Pertussis, Tetanus Vaccination: Yes Physical Exam - Vital signs Vitals: Temp Pulse Resp BP Pulse Ox 98.2 F 62 18 166/90 H 98 07/04/17 13:42 07/04/17 13:42 07/04/17 13:42 07/04/17 13:42 07/04/17 13:42 Course - Vital Signs Vital signs: Temp Pulse Resp BP Pulse Ox 98.2 F 62 18 166/90 H 98 07/04/17 13:42 07/04/17 13:42 07/04/17 13:42 07/04/17 13:42 07/04/17 13:42
[2017-07-04 15:33] LABS: ABSOLUTE MONOCYTES (AUTO) 0.3 10^3/uL (0.1-1.4); ABSOLUTE NEUT (AUTO) 4.1 10^3/uL (1.7-8.2); BASOPHILS % (AUTO) 0.4 % (0-2); EOSINOPHILS % (AUTO) 0.6 % (0-6); HEMATOCRIT 44.3 % (37.9-51.0); LYMPHOCYTES % (AUTO) 18.3 % (13-45); MEAN CORPUSCULAR HEMOGLOBIN 31.5 pg (27.0-33.4); MEAN CORPUSCULAR HGB CONC 33.8 g/dL (32.0-36.0); MEAN CORPUSCULAR VOLUME 93 fl (80-97); MONOCYTES % (AUTO) 6.1 % (3-13); PLATELET COUNT 197 10^3/uL (150-450); RED BLOOD COUNT 4.76 10^6/uL (4.35-5.55); RED CELL DISTRIBUTION WIDTH 13.6 % (11.5-14.0); SEGMENTED NEUTROPHILS % (AUTO) 74.6 % (42-78); TOTAL CELLS COUNTED % (AUTO) 100 %; WHITE BLOOD COUNT 5.4 10^3/uL (4.0-10.5)
[2017-07-04 15:51] LABS: ALANINE AMINOTRANSFERASE 27 U/L (21-72); ALBUMIN 4.5 g/dL (3.5-5.0); ALKALINE PHOSPHATASE 70 U/L (38-126); ANION GAP 8 (5-19); ASPARTATE AMINO TRANSFERASE 24 U/L (17-59); BILIRUBIN,DIRECT 0.4 mg/dL (0.0-0.4); BILIRUBIN,TOTAL 0.8 mg/dL (0.2-1.3); BLOOD UREA NITROGEN 12 mg/dL (7-20); CALCIUM 9.7 mg/dL (8.4-10.2); CARBON DIOXIDE 32 mmol/L (22-30); CHLORIDE 100 mmol/L (98-107); GLUCOSE 122 mg/dL (75-110); POTASSIUM 3.9 mmol/L (3.6-5.0); SODIUM 140.1 mmol/L (137-145); TOTAL PROTEIN 8.1 g/dL (6.3-8.2)
[2017-07-04 15:54] LABS: APPEARANCE,URINE CLEAR; BILIRUBIN,URINE NEGATIVE (NEGATIVE); COLOR,URINE YELLOW; GLUCOSE, URINE >=500 mg/dL (NEGATIVE); KETONES,URINE NEGATIVE (NEGATIVE); LEUKOCYTE ESTERASE,URINE NEGATIVE (NEGATIVE); NITRITE,URINE NEGATIVE (NEGATIVE); PROTEIN,URINE 100 mg/dL (NEGATIVE); URINE SPECIFIC GRAVITY 1.023; UROBILINOGEN,URINE NEGATIVE mg/dL (<2.0)
--- NOTE | 2017-07-04 16:20 | ER Document Report ---
ED General - General Chief Complaint: Pain All Over Stated Complaint: DIZZY, BODY PAIN Time Seen by Provider: 07/04/17 14:13 Mode of Arrival: Ambulatory Notes: 71-year-old male with hypertension diabetes chronic pain on oxycodone presents with weakness and pain in his legs onset this morning when he woke up, he had hold onto things to walk around. This is slightly improved in the last several hours after drinking water. He does not have unilateral weakness numbness tingling chest pain shortness of breath nausea vomiting diarrhea. He takes multiple medications including escitalopram and he states that he was taking an older bottle of citalopram last night and thinks it that is why he feels this way. Patient seen in triage labs and EKG ordered. TRAVEL OUTSIDE OF THE [place] IN LAST 30 DAYS: No - Related Data Allergies/Adverse Reactions: No Known Allergies Allergy (Verified 07/04/17 14:13) Past Medical History - General Information source: Patient - Social History Smoking Status: Former Smoker Chew tobacco use (# tins/day): No Frequency of alcohol use: None Drug Abuse: None Family History: Reviewed & Not Pertinent, Hypertension Patient has suicidal ideation: No Patient has homicidal ideation: No - Past Medical History Cardiac Medical History: Reports: Hx Hypercholesterolemia, Hx Hypertension Denies: Hx Coronary Artery Disease, Hx Heart Attack Pulmonary Medical History: Reports: Hx Asthma, Hx COPD Denies: Hx Bronchitis, Hx Pneumonia Neurological Medical History: Denies: Hx Cerebrovascular Accident, Hx Seizures Endocrine Medical History: Reports: Hx Diabetes Mellitus Type 2 Renal/ Medical History: Reports: Hx Kidney Stones. Denies: Hx Peritoneal Dialysis GI Medical History: Reports: Hx Gastroesophageal Reflux Disease, Hx Hepatitis - HEP C. Denies: Hx Cirrhosis, Hx Hiatal Hernia, Hx Ulcer Musculoskeltal Medical History: Reports Hx Arthritis Psychiatric Medical History: Denies: Hx Depression Infectious Medical History: Reports: Hx Hepatitis - HEP C Past Surgical History: Denies: Hx Abdominal Surgery, Hx Open Heart Surgery, Hx Pacemaker - Immunizations Hx Diphtheria, Pertussis, Tetanus Vaccination: Yes Hx Pneumococcal Vaccination: 04/27/00 Review of Systems - Review of Systems Notes: REVIEW OF SYSTEMS GEN: Denies fever, chills, weight loss ENT: Denies sore throat, nasal discharge, ear pain EYES: Denies blurry vision, eye pain, discharge CV: Denies chest pain, palpitations, edema RESP: Denies cough, shortness of breath, wheezing GI: Denies abdominal pain, nausea, vomiting, diarrhea MSK: Denies joint pain/swelling, edema, positive bilateral leg pain chronic SKIN: Denies rash, skin lesions LYMPH: Denies swollen glands/lymph nodes NEURO: Generalized weakness. Denies headache, focal weakness or numbness, dizziness PSYCH: Denies depression, suicidal or homicidal ideation PHYSICAL EXAMINATION General: No acute distress, well-nourished Head: Atraumatic, normocephalic ENT: Mouth normal, oropharynx moist, no exudates or tonsillar enlargement Eyes: Conjunctiva normal, pupils equal, lids normal Neck: No JVD, supple, no guarding CVS: Normal rate, regular rhythm, no murmurs Resp: No resp distress, equal and normal breath sounds bilaterally GI: Nondistended, soft, no tenderness to palpation, no rebound or guarding Ext: No deformities, no edema, normal range of motion in upper and lower ext Back: No CVA or midline TTP Skin: No rash, warm Lymphatic: No lymphadeopathy noted Neuro: Awake, alert. Face symmetric. GCS 15. No pronator drift, intact video and sound recorder. Normal gait. Physical Exam - Vital signs Vitals: Temp Pulse Resp BP Pulse Ox 98.2 F 62 18 166/90 H 98 07/04/17 13:42 07/04/17 13:42 07/04/17 13:42 07/04/17 13:42 07/04/17 13:42 Course - Re-evaluation Re-evalutation: 07/04/17 16:19 Presents with generalized weakness and leg pain in the setting of chronic pain and diabetes. Blood sugar normal labs normal. EKG shows LVH with no ischemic change. Patient exam is normal. Doubt rhabdo, doubt electrolyte abnormality given normal labs. Could be medication effect versus dehydration. Will hydrate orally and discharged home to follow-up with primary care for medication adjustment. No further workup indicated today in my opinion. Doubt stroke, AL. I have discussed with the patient there likely diagnosis, aftercare plan, follow -up plans and my usual and customary return precautions. They verbalized understanding of this. - Vital Signs Vital signs: Temp Pulse Resp BP Pulse Ox 98.2 F 62 18 166/90 H 98 07/04/17 13:42 07/04/17 13:42 07/04/17 13:42 07/04/17 13:42 07/04/17 13:42 - Laboratory Result Diagrams: 07/04/17 15:07 07/04/17 15:07 Laboratory results interpreted by me: 07/04/17 07/04/17 15:07 15:10 Carbon Dioxide 32 H Est GFR (Non-Af Amer) 58 L Glucose 122 H Urine Protein 100 H Urine Glucose (UA) >=500 H - EKG Interpretation by Me EKG shows normal: Sinus rhythm Rate: Normal When compared to previous EKG there are: No significant change - No ischemic changes Discharge - Discharge Clinical Impression: Generalized weakness Condition: Good Disposition: HOME, SELF-CARE Referrals: TR ESCOBAR MD [ACTIVE STAFF] - Follow up as needed
--- NOTE | 2017-07-05 10:41 | EKG REPORT ---
SEVERITY:- ABNORMAL ECG - SINUS RHYTHM LEFT VENTRICULAR HYPERTROPHY : Confirmed by: Nader Wheat 05-Jul-2017 10:40:50
== END 2017-07-04 16:34 | disposition home or self-care (01) ==
LOC: ER 13:20
DX: R53.1 Weakness (principal); I51.7 Cardiomegaly; E11.9 Type 2 diabetes mellitus without complications; M79.604 Pain in right leg; M79.605 Pain in left leg; G89.29 Other chronic pain; Z79.891 Long term (current) use of opiate analgesic; I10 Essential (primary) hypertension; J44.9 Chronic obstructive pulmonary disease, unspecified; Z79.899 Other long term (current) drug therapy; Z87.891 Personal history of nicotine dependence
CPT/HCPCS: 93005; 99283; 36415; 85025; 80053; 81001; 84484; 93010; A9270

== ENCOUNTER 2019-06-17 17:39 | Emergency (ER) | payer MEDICARE ==
--- NOTE | 2019-06-17 19:00 | ER Document Report ---
ED GI/ - General TRAVEL OUTSIDE OF THE [place] IN LAST 30 DAYS: No <LISETH BARBER - Last Filed: 06/17/19 20:20> <JAYLON STOVALL - Last Filed: 06/18/19 03:20> - General Chief Complaint: Abdominal Pain Stated Complaint: CONSTIPATION Time Seen by Provider: 06/17/19 18:44 Primary Care Provider: TR ESCOBAR MD [Primary Care Provider] - Follow up in 1 week Notes: Patient is a 73-year-old male with a history of hypertension, type 2 diabetes who presents emergency department with a chief complaint of abdominal pain. Patient reports his last normal bowel movement was about 2 weeks ago. Patient reports he does quiles with constipation. Patient reports he does have a history of an obstruction. Patient reports since Thursday he has had multiple wa rufina stools. Patient states he is concerned that it may be going around a blockage. Patient reports he did vomit once on Thursday. Patient reports he feels like his abdomen is more swollen than normal. Patient denies fever. Patient reports a 10 pound weight loss over the past 6 days as he has had a significant decrease in his appetite. Patient denies urinary symptoms but also complains of lower back pain. (ELISABETHTHEA GAFFNEYCA) - Related Data Allergies/Adverse Reactions: No Known Allergies Allergy (Verified 06/17/19 18:11) Past Medical History - General Information source: Patient - Social History Smoking Status: Never Smoker Chew tobacco use (# tins/day): No Frequency of alcohol use: None Drug Abuse: None Lives with: Family Family History: Reviewed & Not Pertinent, Hypertension Patient has suicidal ideation: No Patient has homicidal ideation: No - Past Medical History Cardiac Medical History: Reports: Hx Hypercholesterolemia, Hx Hypertension Denies: Hx Coronary Artery Disease, Hx Heart Attack Pulmonary Medical History: Reports: Hx Asthma, Hx COPD Denies: Hx Bronchitis, Hx Pneumonia EENT Medical History: Reports: None Neurological Medical History: Reports: None. Denies: Hx Cerebrovascular Accident, Hx Seizures Endocrine Medical History: Reports: Hx Diabetes Mellitus Type 2 Renal/ Medical History: Reports: Hx Kidney Stones. Denies: Hx Peritoneal Dialysis Malignancy Medical History: Reports None GI Medical History: Reports: Hx Gastroesophageal Reflux Disease, Hx Hepatitis - HEP C. Denies: Hx Cirrhosis, Hx Hiatal Hernia, Hx Ulcer Musculoskeletal Medical History: Reports Hx Arthritis Skin Medical History: Reports None Psychiatric Medical History: Reports: None Denies: Hx Depression Traumatic Medical History: Reports: None Infectious Medical History: Reports: Hx Hepatitis - HEP C Past Surgical History: Denies: Hx Abdominal Surgery, Hx Open Heart Surgery, Hx Pacemaker - Immunizations Hx Diphtheria, Pertussis, Tetanus Vaccination: Yes Hx Pneumococcal Vaccination: 04/27/00 <LISETH BARBER - Last Filed: 06/17/19 20:20> Review of Systems - Review of Systems Constitutional: No symptoms reported EENT: No symptoms reported Cardiovascular: No symptoms reported Respiratory: No symptoms reported Gastrointestinal: See HPI Genitourinary: No symptoms reported Male Genitourinary: No symptoms reported Musculoskeletal: No symptoms reported Skin: No symptoms reported Hematologic/Lymphatic: No symptoms reported Neurological/Psychological: No symptoms reported <LISETH BARBER - Last Filed: 06/17/19 20:20> Physical Exam - Vital signs Interpretation: Normal <LISETH BARBER - Last Filed: 06/17/19 20:20> - Vital signs Vitals: Temp Pulse Resp BP Pulse Ox 97.7 F 59 L 16 133/66 H 100 06/17/19 17:43 06/17/19 17:43 06/17/19 17:43 06/17/19 17:43 06/17/19 17:43 - Notes Notes: GENERAL: Well-appearing, well-nourished and in no acute distress. HEAD: Atraumatic, normocephalic. EYES: Pupils equal round and reactive to light, extraocular movements intact, sclera anicteric, conjunctiva are normal. ENT: Nares patent, oropharynx clear without exudates. Moist mucous membranes. NECK: Normal range of motion, supple without lymphadenopathy or JVD. LUNGS: Breath sounds clear to auscultation bilaterally and equal. No wheezes rales or rhonchi. HEART: Regular rate and rhythm without murmurs, rubs or gallops. ABDOMEN: Soft, round, generally non tender, hypoactive bowel sounds. No guarding, no rebound. No masses appreciated. BACK: No cervical, thoracic, lumbar midline tenderness. No saddle anesthesia, normal distal neurovascular exam. GENITOURINARY: Deferred. EXTREMITIES: Normal range of motion, no pitting or edema. No clubbing or cyanosis. NEUROLOGICAL: Cranial nerves II through XII grossly intact. Normal speech, normal gait. PSYCH: Normal mood, normal affect. SKIN: Warm, Dry, normal turgor, no rashes or lesions noted. (LISETH BARBER) Course - Laboratory Result Diagrams: 06/17/19 19:45 06/17/19 19:45 <LISETH BARBER - Last Filed: 06/17/19 20:20> - Laboratory Result Diagrams: 06/17/19 19:45 06/17/19 19:45 <JAYLON STOVALL - Last Filed: 06/18/19 03:20> - Re-evaluation Re-evalutation: 06/17/19 18:59 Patient is resting comfortably on stretcher no acute distress. Will start out with basic labs, urinalysis as well as an acute abdominal series x-ray. Patient verbalized understanding of plan at this time. 06/17/19 20:20 Labs pending. Air fluid levels noted on XRAY, CT ordered with oral and IV contrast to rule out obstruction and/or acute abdominal abnormality. (LISETH BARBER) Patient came out to find me as I was passing by, he states he feels fine, he states he is hungry and he just wants to eat and go home. His results are not back yet, I did request patient to wait until the results are back and I would be back as soon as I could. When results were obtained I discussed with patient. No obstruction is seen, there is some fluid in the colon suggesting enteritis per radiology but I suspect this is because patient took multiple laxatives causing him to have multiple watery bowel movements. He has a nontender abdomen on my exam. Patient is asking about how constipated he has, I really do not see any significant stool on the exam. I discussed with patient. I did provide him with a stool softener on request with prescription but advised him that he probably does not need this now, I recommended we give him IV fluids because his creatinine is 2.2 today which is increased from his normal previous levels. Patient declined, he states he does not want an IV and he wants to go home. He does state that he will have this close to recheck with his primary care provider within the next week, his family member at bedside states this will be performed. He states he will drink plenty of fluids as well. Discussed return precautions. He states understanding and agreement. Stable at time of discharge. (JAYLON STOVALL) - Vital Signs Vital signs: Temp Pulse Resp BP Pulse Ox 97.4 F 51 L 17 147/68 H 100 06/17/19 23:35 06/17/19 23:35 06/17/19 23:35 06/17/19 23:35 06/17/19 23:35 - Laboratory Laboratory results interpreted by me: 06/17/19 06/17/19 06/17/19 19:25 19:45 19:45 RBC 4.32 L Lymph % (Auto) 46.5 H Seg Neutrophils % 40.7 L Sodium 136.5 L Potassium 3.2 L BUN 49 H Creatinine 2.20 H Est GFR ( Amer) 36 L Est GFR (MDRD) Non-Af 29 L Total Protein 8.4 H Lipase 331.3 H Urine Protein 100 H Discharge <LISETH BARBER - Last Filed: 06/17/19 20:20> <JAYLON STOVALL - Last Filed: 06/18/19 03:20> - Discharge Clinical Impression: Abdominal pain Qualifiers: Abdominal location: generalized Qualified Code(s): R10.84 - Generalized abdominal pain Condition: Stable Disposition: HOME, SELF-CARE Additional Instructions: Your imaging and work-up are reassuring. Your kidney functioning is borderline now, most likely because of all your bowel movements with your laxatives. I recommend that you drink plenty of fluids. Your creatinine today is 2.2, this needs to be rechecked with your primary care provider and close follow-up. You have been provided with a stool softener but based on your imaging you really do not need a stool softener at this time, use this as needed in the future. Take Tylenol if needed for abdominal pain. Return if you worsen including vomiting, severe worsening pain of your abdomen, fever, or any other concerning symptoms. Prescriptions: Docusate Sodium [Colace 100 mg Capsule] 100 mg PO ASDIR PRN #30 capsule PRN Reason: Referrals: TR ESCOBAR MD [Primary Care Provider] - Follow up in 1 week
--- NOTE | 2019-06-17 19:51 | RADIOLOGY REPORT (SQ) ---
EXAM DESCRIPTION: ACUTE ABDOMEN SERIES COMPLETED DATE/TIME: 06/17/2019 7:34 pm REASON FOR STUDY: Generalized abdominal pain, distention COMPARISON: None. NUMBER OF VIEWS: Three views TECHNIQUE: Frontal chest, Supine and upright radiographic image of the abdomen acquired. LIMITATIONS: None. FINDINGS: BOWEL GAS PATTERN: Scattered small air-fluid levels in the colon. No dilated small bowel l oops. CALCIFICATIONS: No suspicious calcifications. SOFT TISSUES: No gross mass or suggestion of organomegaly. HARDWARE: None in the abdomen. BONES: No acute fracture. No worrisome bone lesions. OTHER: 2.5 cm nodular opacity over right upper lobe. IMPRESSION: Scattered small air-fluid levels in the colon. No dilated small bowel loops. 2.5 cm nodular opacity over right upper lobe. TECHNICAL DOCUMENTATION: JOB ID: [id number] [id number] 2010 [employer]- All Rights Reserved Reading location - IP/workstation name: [email or web address]
[2019-06-17 19:55] LABS: APPEARANCE,URINE SLIGHTLY-CLOUDY; BILIRUBIN,URINE NEGATIVE (NEGATIVE); COLOR,URINE YELLOW; GLUCOSE, URINE NEGATIVE (NEGATIVE); KETONES,URINE NEGATIVE (NEGATIVE); LEUKOCYTE ESTERASE,URINE NEGATIVE (NEGATIVE); NITRITE,URINE NEGATIVE (NEGATIVE); PROTEIN,URINE 100 mg/dL (NEGATIVE); URINE SPECIFIC GRAVITY 1.023; UROBILINOGEN,URINE NEGATIVE mg/dL (<2.0)
[2019-06-17 20:19] LABS: ABSOLUTE EOSINOPHILS # (AUTO) 0.2 10^3/uL (0.0-0.6); ABSOLUTE LYMPHOCYTES (AUTO) 2.7 10^3/uL (0.5-4.7); ABSOLUTE MONOCYTES (AUTO) 0.4 10^3/uL (0.1-1.4); ABSOLUTE NEUT (AUTO) 2.3 10^3/uL (1.7-8.2); BASOPHILS % (AUTO) 0.8 % (0-2); EOSINOPHILS % (AUTO) 4.4 % (0-6); HEMATOCRIT 39.4 % (37.9-51.0); HEMOGLOBIN 13.8 g/dL (13.5-17.0); LYMPHOCYTES % (AUTO) 46.5 % (13-45); MEAN CORPUSCULAR HEMOGLOBIN 32.1 pg (27.0-33.4); MEAN CORPUSCULAR HGB CONC 35.1 g/dL (32.0-36.0); MEAN CORPUSCULAR VOLUME 91 fl (80-97); MONOCYTES % (AUTO) 7.6 % (3-13); PLATELET COUNT 199 10^3/uL (150-450); RED BLOOD COUNT 4.32 10^6/uL (4.35-5.55); RED CELL DISTRIBUTION WIDTH 13.8 % (11.5-14.0); SEGMENTED NEUTROPHILS % (AUTO) 40.7 % (42-78); TOTAL CELLS COUNTED % (AUTO) 100 %; WHITE BLOOD COUNT 5.7 10^3/uL (4.0-10.5)
[2019-06-17 20:36] LABS: ALBUMIN 4.4 g/dL (3.5-5.0); ALKALINE PHOSPHATASE 87 U/L (38-126); ANION GAP 12 (5-19); ASPARTATE AMINO TRANSFERASE 31 U/L (17-59); BILIRUBIN,DIRECT 0.3 mg/dL (0.0-0.4); BILIRUBIN,TOTAL 0.5 mg/dL (0.2-1.3); BLOOD UREA NITROGEN 49 mg/dL (7-20); CARBON DIOXIDE 27 mmol/L (22-30); CHLORIDE 98 mmol/L (98-107); GLUCOSE 98 mg/dL (75-110); POTASSIUM 3.2 mmol/L (3.6-5.0); TOTAL PROTEIN 8.4 g/dL (6.3-8.2)
[2019-06-17 23:40] VITALS: BP 147/68
--- NOTE | 2019-06-17 23:40 | RADIOLOGY REPORT (SQ) ---
CT ABDOMEN AND PELVIS WITHOUT INTRAVENOUS CONTRAST: 06/17/2019 10:32 PM PULLEY MAN HISTORY: 73-year old with concern for obstruction. COMPARISON: None available TECHNIQUE: Axial contiguous images were obtained from the lung bases to the proximal femurs without intravenous contrast administered. Oral contrast was also given to the patient. Sagittal and coronal reconstructions were also obtained and reviewed. This exam was performed according to our departmental dose-optimization program, which includes automated exposure control, adjustment of the mA and/or KV according to the patient's size and/or use of iterative reconstruction technique. FINDINGS: The lung bases appear clear without evidence of a focal consolidative airspace opacity or effusions. Evaluation of the solid organs is limited by the lack of intravenous contrast. The visualized hepatic parenchyma is unremarkable. The gallbladder demonstrates no evidence of calcified gallstones The spleen, pancreas, and adrenals are normal in size and contour. The kidneys demonstrate no evidence of hydronephrosis. No renal or ureteral calculi are seen. Bladder is minimally distended, but grossly appears unremarkable. The stomach is not well distended. The small bowel loops appear unremarkable. No pericolonic inflammatory stranding is seen. The colon is fluid-filled and mildly distended which may represent evidence of enteritis. There is no evidence of pneumoperitoneum or free fluid. The aorta and IVC appear normal in size. There is mild to moderate atherosclerotic calcification of the aorta and into the iliac arteries. No significantly enlarged lymph nodes are seen in the abdomen or pelvis. Review of the bone show no evidence of any suspicious lytic or blastic lesions. IMPRESSION: The colon is fluid-filled and mildly distended which may represent evidence of enteritis.
== END 2019-06-18 00:15 | disposition home or self-care (01) ==
LOC: ER 17:39
DX: R10.84 Generalized abdominal pain (principal); R19.4 Change in bowel habit; R11.10 Vomiting, unspecified; R63.4 Abnormal weight loss; R63.0 Anorexia; M54.5 Low back pain; I10 Essential (primary) hypertension; E11.9 Type 2 diabetes mellitus without complications; J44.9 Chronic obstructive pulmonary disease, unspecified; Z87.19 Personal history of other diseases of the digestive system
CPT/HCPCS: 36415; 74022; 74176; 80053; 81001; 83690; 85025; 99284

== ENCOUNTER → 2019-12-10 | Outpatient (CLI) | payer MEDICARE ==
--- NOTE | 2019-12-10 18:11 | RADIOLOGY REPORT (SQ) ---
EXAM DESCRIPTION: KNEE LEFT 4 VIEWS IMAGES COMPLETED DATE/TIME: 12/10/2019 10:58 am REASON FOR STUDY: PAIN IN LEFT KNEE M25.562 PAIN IN LEFT KNEE COMPARISON: None. NUMBER OF VIEWS: Four views. TECHNIQUE: AP, lateral, and both oblique radiographic images acquired of the left knee. LIMITATIONS: None. FINDINGS: MINERALIZATION: Normal. BONES: No acute fracture or dislocation. No worrisome bone lesions. No significant osteophytes. JOINT: Small joint effusion. OTHER: No other significant finding. IMPRESSION: Joint effusion. No other significant finding. TECHNICAL DOCUMENTATION: JOB ID: [id number] 2010 [employer]- All Rights Reserved Reading location - IP/workstation name: [email or web address]
== END ==
LOC: OD 10:34
PROVIDERS: ATTEND Nurse Practitioner Family
DX: M25.562 Pain in left knee (principal)

== ENCOUNTER 2020-05-09 06:56 | Emergency (ER) | payer MEDICARE ==
[2020-05-09] MEDS ORDERED: CLONIDINE HCL 0.1 MG TABLET PO ONE (09:22)
--- NOTE | 2020-05-09 09:45 | RADIOLOGY REPORT (SQ) ---
EXAM DESCRIPTION: L SPINE 2 VIEWS IMAGES COMPLETED DATE/TIME: 05/09/2020 9:02 am REASON FOR STUDY: R low back pain COMPARISON: None. NUMBER OF VIEWS: Two views. TECHNIQUE: AP and lateral radiographic images acquired of the lumbar spine. LIMITATIONS: None. FINDINGS: MINERALIZATION: Normal. SEGMENTATION: Normal. No transitional anatomy. ALIGNMENT: Grade 1 spondylolisthesis L4-5. VERTEBRAE: Maintained height. No fracture or worrisome bone lesion. DISCS: Disc space narrowing and osteophyte formation L5-S1. POSTERIOR ELEMENTS: Pedicles and facets are intact. No pars defect or posterior arch defects. HARDWARE: None in the spine. PARASPINAL SOFT TISSUES: Calcified aorta. PELVIS: Mild sclerosis left SI joint. OTHER: No other significant finding. IMPRESSION: No acute findings. TECHNICAL DOCUMENTATION: JOB ID: [id number] [employer]- All Rights Reserved Reading location - IP/workstation name: [email or web address]
[2020-05-09 10:58] VITALS: BP 142/70
--- NOTE | 2020-05-09 11:16 | ER Document Report ---
ED General - General Chief Complaint: Congestion Stated Complaint: CONGESTION,BACK PAIN Time Seen by Provider: 05/09/20 08:22 Primary Care Provider: TR ESCOBAR MD [Primary Care Provider] - Follow up as needed Mode of Arrival: Ambulatory Information source: Patient TRAVEL OUTSIDE OF THE [place] IN LAST 30 DAYS: No - HPI Notes: Patient arrives with a laundry list of unrelated somatic complaints. First he says he has a little bit of chest congestion and a cough. He denies any fever or chills. He denies any other symptoms. He denies any exposure to illness. He does not have chronic lung disease. He is otherwise in his usual state of health. Second he is concerned because his blood pressure is elevated. He is on a multidrug regimen managed by his primary care doctor who he has seen fairly recently he claims, and when I questioned the patient at the beginning of the visit he said that he had taken his blood pressure medicine this morning and his blood pressure was still elevated. When his nurse went and and question him about that he said the same thing. However when the nurse returned later to check on the patient he had asked for a glass of water and was taking his pills that he had brought with him. She asked him what he was doing and he said he was taking his morning blood pressure medicines. Patient's third complaint is back pain. He has some right low back pain that is localized in the right SI joint region. It hurts when he bends or moves. Has no sciatic component. He has no radiculopathy. He has no bowel or bladder changes. He has no foot drop. His records indicate a long history of chronic back pain and he in fact is on Percocet chronically prescribed by his primary care provider for chronic pain problems. The patient's fourth complaint is that he is constipated. He says that he has not had a bowel movement in 2 days. He has no abdominal pain. He has no abdominal distention. He is not vomiting. He has no stool leakage. He says that he does take laxatives and has senna and his medication list but he says he has not taken some in several days. - Related Data Allergies/Adverse Reactions: No Known Allergies Allergy (Verified 05/09/20 09:56) Past Medical History - General Information source: Patient - Social History Smoking Status: Never Smoker Family History: Reviewed & Not Pertinent, Hypertension - Medical History Medical History: Other Notes: Past medical history as documented in the electronic health record is reviewed. - Past Medical History Cardiac Medical History: Reports: Hx Hypercholesterolemia, Hx Hypertension Denies: Hx Coronary Artery Disease, Hx Heart Attack Pulmonary Medical History: Reports: Hx Asthma, Hx COPD Denies: Hx Bronchitis, Hx Pneumonia Neurological Medical History: Denies: Hx Cerebrovascular Accident, Hx Seizures Endocrine Medical History: Reports: Hx Diabetes Mellitus Type 2 Renal/ Medical History: Reports: Hx Kidney Stones. Denies: Hx Peritoneal Dialysis GI Medical History: Reports: Hx Gastroesophageal Reflux Disease, Hx Hepatitis - HEP C. Denies: Hx Cirrhosis, Hx Hiatal Hernia, Hx Ulcer Musculoskeletal Medical History: Reports Hx Arthritis Psychiatric Medical History: Denies: Hx Depression Infectious Medical History: Reports: Hx Hepatitis - HEP C Past Surgical History: Denies: Hx Abdominal Surgery, Hx Open Heart Surgery, Hx Pacemaker - Immunizations Hx Diphtheria, Pertussis, Tetanus Vaccination: Yes Hx Pneumococcal Vaccination: 04/27/00 Review of Systems - Review of Systems Notes: All other systems reviewed are negative or noncontributory except as noted the present illness. Physical Exam - Vital signs Vitals: Temp Pulse Resp BP Pulse Ox 98.2 F 73 16 208/101 H 100 05/09/20 07:14 05/09/20 07:14 05/09/20 07:14 05/09/20 07:14 05/09/20 07:14 - Notes Notes: General: Well-developed well-nourished male no acute distress. Vital signs and nursing documentation are reviewed. Lungs: Clear to auscultation all yost. Heart: Regular rate and rhythm no murmur. Abdomen: Active bowel sounds, no palpable aneurysmal dilatation, no bruit or thrill, no masses or organomegaly. Back: Normal curvatures. Full range of motion. Patient is tender over the right SI joint which reproduces his pain. Extremities: Without clubbing cyanosis or edema. Peripheral circulation appears intact. Course - Re-evaluation Re-evalutation: 05/09/20 11:15 Plain film x-rays of the patient's back were negative for anything acute. They also did not reveal a massive amount of stool in his colon nor did they reveal any suggestion of an abdominal aortic aneurysm. The patient's blood pressure came down quite nicely after about an hour and a half once he had taken his medications. We discussed measuring his blood pressure at home. I suggested that he do it once a day at suppertime when his medicines have been on board for 6 to 8 hours and had time to work rather than taking his blood pressure in the morning when we knew it was going to be. Regarding his constipation I suggested MiraLAX [id number]. Regarding his back pain he can continue his Percocet. We did a Covid test and we will call him with results. - Vital Signs Vital signs: Temp Pulse Resp BP Pulse Ox 98.2 F 73 16 142/70 H 100 05/09/20 07:14 05/09/20 07:14 05/09/20 07:14 05/09/20 10:00 05/09/20 07:14 - Laboratory Results Critical Laboratory Results Reviewed: No Critical Results - Radiology Results Critical Radiology Results Reviewed: No Critical Results Discharge - Discharge Clinical Impression: COVID-19 virus RNA test result unknown Hypertension Qualifiers: Hypertension type: essential hypertension Qualified Code(s): I10 - Essential (primary) hypertension Low back pain Qualifiers: Chronicity: chronic Back pain laterality: right Sciatica presence: without sciatica Qualified Code(s): M54.5 - Low back pain; G89.29 - Other chronic pain Constipation Qualifiers: Constipation type: unspecified constipation type Qualified Code(s): K59.00 - Constipation, unspecified Condition: Stable Disposition: HOME, SELF-CARE Additional Instructions: Take your blood pressure medicine in the morning as prescribed. Take your blood pressure measurement in the evening at suppertime when your medicine has had time to work. Use MiraLAX [id number] for constipation. Follow the label directions. Continue your Percocet for your back pain. Follow-up with your doctor in 7 to 10 days for recheck. Call for an appointment. Return to the emergency department if any concerning symptoms develop. You will be called with the results of your Covid test. Referrals: TR ESCOBAR MD [Primary Care Provider] - Follow up as needed
== END 2020-05-09 12:07 | disposition home or self-care (01) ==
LOC: ER 06:56
DX: U07.1 COVID-19 (principal); K59.00 Constipation, unspecified; M54.5 Low back pain; G89.29 Other chronic pain; J44.9 Chronic obstructive pulmonary disease, unspecified; E11.9 Type 2 diabetes mellitus without complications; I10 Essential (primary) hypertension; Z79.899 Other long term (current) drug therapy; Z79.891 Long term (current) use of opiate analgesic
CPT/HCPCS: 99284; 72100; U0003; C9803; 87635

== ENCOUNTER → 2020-05-21 | Outpatient (CLI) | payer MEDICARE ==
--- NOTE | 2020-05-21 16:48 | RADIOLOGY REPORT (SQ) ---
EXAM DESCRIPTION: CHEST 2 VIEWS IMAGES COMPLETED DATE/TIME: 05/21/2020 4:24 pm REASON FOR STUDY: (U07.1)COVID-19 COMPARISON: 09/06/2016. EXAM PARAMETERS: NUMBER OF VIEWS: two views TECHNIQUE: Digital Frontal and Lateral radiographic views of the chest acquired. RADIATION DOSE: NA LIMITATIONS: none FINDINGS: LUNGS AND PLEURA: Patchy scattered airspace disease in both lungs, more prominent in the r ight upper lobe. No pleural effusion. No pneumothorax. MEDIASTINUM AND HILAR STRUCTURES: No masses or contour abnormalities. HEART AND VASCULAR STRUCTURES: Heart normal size. No evidence for failure. BONES: No acute findings. HARDWARE: None in the chest. OTHER: No other significant finding. IMPRESSION: MULTIFOCAL PNEUMONIA CONSISTENT WITH COVID-19 INFECTION. TECHNICAL DOCUMENTATION: JOB ID: [id number] 2010 [employer]- All Rights Reserved Reading location - IP/workstation name: [email or web address]
== END ==
LOC: RAD 16:12
PROVIDERS: ATTEND Internal Medicine
DX: U07.1 COVID-19 (principal); J12.82 Pneumonia due to coronavirus disease 2019
CPT/HCPCS: 71046